=== PATIENT | male | born 1945 | race Caucasian/White ===

== ENCOUNTER 2016-07-04 12:28 | Inpatient (IN) | payer MEDICARE, MEDICAID ==
--- NOTE | 2016-07-04 13:05 | ED Physician Chart ---
Chief Complaint/HPI - Patient Information Date Seen:: 07/04/16 Time Seen:: 12:48 Chief Complaint:: ALOC History of Present Illness:: THIS IS A 70 YO MALE WHO STATES THAT SUDDENLY THIS AM HE BECAME LETHARGIC AND DEPRESSED FOR NO KNOWN REASON. HE DENIES CHEST PAIN, ABDOMIN PAIN AND HEAD PAIN. HE DESCRIBES A CLOUDY FEELING IN HIS HEAD. HE ALSO STATES THAT HE FEEL VERY WEAK. HE HAS COPD, HEART DISEASE, HYPERTENSIONS, DVT AND ATRIAL FIB. Allergies:: Allergies Allergy/AdvReac Type Severity Reaction Status Date / Time codeine Allergy Verified 07/04/16 12:53 Vitals:: Vital Signs - 8 hr 07/04/16 12:40 Temp 97.8 F HR 63 RR 16 BP 128/84 O2 Sat % 96 Historian:: Patient, Medical Records Review:: Nurse's Note Reviewed Review of Systems - Review of Systems General/Constitutional: No fever, No chills, No weight loss, Weakness, No diaphoresis, No edema, Loss of appetite Skin: No skin lesions, No rash, No bruising Head: Headache, No light-headedness Eyes: No loss of vision, No pain, No diplopia ENT: No earache, No nasal drainage, No sore throat, No tinnitus Neck: No neck pain, No swelling, No thyromegaly, No stiffness, No mass noted Cardio Vascular: No chest pain, No palpitations, No PND, No orthopnea, No edema Pulmonary: No SOB, No cough, No sputum, No wheezing GI: No nausea, No vomiting, No diarrhea, No pain, No melena, No hematochezia, No constipation, No hematemesis G/U: No dysuria, No frequency, No hematuria Musculoskeletal: No bone or joint pain, No back pain, No muscle pain Endocrine: No polyuria, No polydipsia Psychiatric: Prior psych history, Depression, No anxiety, No suicidal ideation Hematopoietic: No bruising, No lymphadenopathy Allergic/Immuno: No urticaria, No angioedema Neurological: No syncope, No focal symptoms, No weakness, No paresthesia, No headache, No seizure, No dizziness, No confusion, No vertigo Past Medical History - Past Medical History Obtainable: Yes Past Medical History: HTN, CAD, CHF, Asthma/COPD, DVT/PE Family History: None Social History: Non Smoker, No Alcohol, No Drug Use, Care Facility [facility] History - Family Member Mother History Unknown: Yes Physical Exam - Physical Examination General/Constitutional: Awake, Well-developed, well-nourished, Alert, No distress, GCS 15, Non-toxic appearing, Ambulatory Other Gen/Cons comments:: SLOW MOVING WITH SLOW ANSWERS TO QUESTIONS Head: Atraumatic Eyes: Lids, conjuctiva normal, PERRL, EOMI Skin: Nl inspection, No rash, No skin lesions, No ecchymosis, Well hydrated, No lymphadenopathy ENMT: External ears, nose nl, Nasal exam nl, Lips, teeth, gums nl Neck: Nontender, Full ROM w/o pain, No JVD, No nuchal rigidity, No bruit, No mass, No stridor Respiratory: Nl effort/Exclusion, Clear to Auscultation, No Wheeze/Rhonchi/Rales Cardio Vascular: RRR, No murmur, gallop, rubs, NL S1 S2 GI: No tenderness/rebounding/guarding, No organomegaly, No hernia, Normal BS's, Nondistended, No mass/bruits, No McBurney tenderness : No CVA tenderness Extremities: No tenderness or effusion, Full ROM, normal strength in all extremities, No edema, Normal digits & nails Neuro/Psych: Alert/oriented, DTR's symmetric, Normal sensory exam, Normal motor strength, Judgement/insight normal, Normal gait, No focal deficits Other Neuro/Psych comments:: DEPRESSED MOOD Misc: normal gait, Normal back, No paraspinal tenderness Labs/Radiology/EKG Results - Lab Results Results: Laboratory Results - last 24 hr 07/04/16 07/04/16 07/04/16 13:00 13:00 13:00 WBC 4.8 RBC 4.68 Hgb 14.8 Hct 44.0 MCV 94.0 MCH 31.7 H MCHC Differential 33.7 RDW 12.5 Plt Count 151 MPV 9.6 Neutrophils % 72.0 Lymphocytes % 16.8 L Monocytes % 8.7 Eosinophils % 1.3 Basophils % 1.2 Sodium 137 Potassium 4.0 Chloride 106 Carbon Dioxide 27.9 Anion Gap 7.1 BUN 23 Creatinine 0.9 Est GFR ( Amer) TNP Est GFR (Non-Af Amer) TNP BUN/Creatinine Ratio 25.6 Glucose 92 Calcium 9.6 Total Bilirubin 1.2 H AST 16 ALT 22 Alkaline Phosphatase 82 Troponin I Total Protein 6.6 Albumin 4.1 L Globulin 2.5 Albumin/Globulin Ratio 1.6 Triglycerides 118 Cholesterol 192 LDL Cholesterol Direct 114 HDL Cholesterol 58 Urine Source Urine Color Urine Clarity Urine pH Ur Specific [place] Urine Protein Urine Glucose (UA) Urine Ketones Urine Blood Urine Nitrate Urine Bilirubin Urine Urobilinogen Ur Leukocyte Esterase Digoxin 07/04/16 07/04/16 07/04/16 13:00 13:00 13:45 WBC RBC Hgb Hct MCV MCH MCHC Differential RDW Plt Count MPV Neutrophils % Lymphocytes % Monocytes % Eosinophils % Basophils % Sodium Potassium Chloride Carbon Dioxide Anion Gap BUN Creatinine Est GFR ( Amer) Est GFR (Non-Af Amer) BUN/Creatinine Ratio Glucose Calcium Total Bilirubin AST ALT Alkaline Phosphatase Troponin I 0.01 Total Protein Albumin Globulin Albumin/Globulin Ratio Triglycerides Cholesterol LDL Cholesterol Direct HDL Cholesterol Urine Source CLEAN C Urine Color YELLOW Urine Clarity CLEAR Urine pH 7.0 Ur Specific [place] 1.020 Urine Protein NEGATIVE Urine Glucose (UA) NEGATIVE Urine Ketones NEGATIVE Urine Blood NEGATIVE Urine Nitrate NEGATIVE Urine Bilirubin NEGATIVE Urine Urobilinogen 2.0 Ur Leukocyte Esterase NEGATIVE Digoxin 0.8 - Radiology Results Results: CARDIOMEGALY PULMONARY EDEMA - EKG Interpretations EKG Time:: 12:49 Rate & Rhythm: RATE = 59, ATRIAL FIBRILLATION [place]: RIGHT Intervals: NO PVCS, Assessment - Assessment General Assessment: A-FIB AND CONGESTIVE HEART FAILURE DEPRESSION ED Septic Shock - . Is Septic Shock (SBP<90, OR Lactate>4 mmol\L) present?: No - <6hrs of presentation: Vital Signs: Vital Signs - 8 hr 07/04/16 12:40 Temp 97.8 F HR 63 RR 16 BP 128/84 O2 Sat % 96 Reassessment (Disposition) - Diagnosis Diagnosis:: CONGESTIVE HEART FAILURE ATRIAL FIB - Patient Disposition Discharge/Transfer:: Acute Care w/in this hosp Admitting Medical Physician:: Willie Walls ED Discharge Plan - Patient Disposition Admit/Discharge/Transfer: Acute Care w/in this hosp Condition at Disposition: Stable
[2016-07-04 13:14] LABS: % BASOPHILS 1.2 % (0.0-2.0); % EOSINOPHILS 1.3 % (0.0-5.0); % LYMPHOCYTES 16.8 % (20.0-50.0); % MONOCYTES 8.7 % (2.0-10.0); HEMOGLOBIN 14.8 gm/dL (12.6-17.4); MEAN CORPUSCULAR HEMOGLOBIN 31.7 pg (27.0-31.0); MEAN CORPUSCULAR HGB CONC 33.7 pg (28.0-36.0); MEAN PLATELET VOLUME 9.6 fl; NEUTROPHILE ABSOLUTE 3.4 Th/cmm (1.8-8.0); PLATELET COUNT 151 Th/cmm (150-400); RED BLOOD COUNT 4.68 Mil/cmm (3.80-5.80); RED CELL DISTRIBUTION WIDTH 12.5 % (11.5-20.0); WHITE BLOOD COUNT 4.8 Th/cmm (4.8-10.8)
--- NOTE | 2016-07-04 13:23 | Diagnostic Imaging Report ---
Portable chest x-ray HISTORY: Shortness of breath The heart is enlarged. No focal pulmonary processes. There is suggestion of a degree of pulmonary vascular redistribution consistent with marginal cardiac decompensation. No kimberlee pulmonary edema. No other focal processes. IMPRESSION: 1. Cardiomegaly along with changes suggesting marginal congestive heart failure without kimberlee pulmonary edema.
[2016-07-04 13:24] LABS: INR 1.12 (0.5-1.4); PROTHROMBIN TIME (TEST) 11.8 SECONDS (9.5-11.5)
[2016-07-04 13:28] LABS: ALB/GLOB RATIO 1.6 (1.0-1.8); ALKALINE PHOSPHATASE 82 U/L (34-104); ANION GAP 7.1 (7.0-16.0); BILIRUBIN,TOTAL 1.2 mg/dL (0.3-1.0); BUN - UREA NITROGEN 23 mg/dL (7-25); BUN/CREATININE RATIO 25.6; CALCIUM SERUM 9.6 mg/dL (8.6-10.3); CARBON DIOXIDE 27.9 mEq/L (21.0-31.0); CHLORIDE 106 mEq/L (98-107); CREATININE - SERUM 0.9 mg/dL (0.7-1.3); GLUCOSE 92 mg/dL (70-105); SGOT 16 U/L (13-39); SGPT/ALT 22 U/L (7-52); SODIUM SERUM 137 mEq/L (136-145)
[2016-07-04 13:29] LABS: CHOLESTEROL 192 mg/dL (<200); TRIGLYCERIDES 118 mg/dL (<150)
[2016-07-04 13:57] LABS: URINE BILIRUBIN NEGATIVE (NEGATIVE); URINE BLOOD NEGATIVE (NEGATIVE); URINE COLOR YELLOW; URINE GLUCOSE (UA) NEGATIVE (NEGATIVE); URINE KETONE NEGATIVE (NEGATIVE); URINE PROTEIN NEGATIVE (NEGATIVE)
[2016-07-04 14:04] LABS: AMPHETAMINE URINE NEGATIVE (NEGATIVE); BARBITURATES URINE NEGATIVE (NEGATIVE); METHADONE URINE NEGATIVE (NEGATIVE)
--- NOTE | 2016-07-04 14:50 | Diagnostic Imaging Report ---
CT scan of the brain without intravenous contrast HISTORY: Stroke, CVA Total DLP equals 810 CTDI equals 40.0 Axial sections were obtained from the base of the skull to the vertex. There is a prominent ventricular system size along with enlargement of cerebral sulci and subarachnoid cisterns reflecting atrophy. No acute parenchymal abnormalities. No intracerebral hemorrhage. No mass effect or shift of midline structures. A subcentimeter hypodense focus is seen in the right basal ganglia region that may be associated with an old lacunar infarct. Extensive abnormal intraluminal density consistent with mucosal thickening noted throughout the maxillary sinuses. Findings consistent with inflammatory change. IMPRESSION: 1. No acute intracerebral abnormalities 2. Small focus that may be associated with an old right basal ganglia lacunar infarct 3. Cerebral atrophy 4. Extensive abnormal mucosal changes within the maxillary sinuses consistent with inflammatory change.
[2016-07-04] MEDS ORDERED: Maalox 30 mL Cup PO PRN (15:09)
[2016-07-04] MEDS ORDERED: Magnesium Hydroxide (MOM) 30 mL UDC PO PRN (15:09)
[2016-07-04] MEDS ORDERED: guaiFENesin 200 MG/10 ML UDC PO PRN (15:16)
[2016-07-04] MEDS ORDERED: Albuterol Nebulizer 2.5mg/3mL HHN ONE (15:24)
[2016-07-04] MEDS ORDERED: Ipratropium Neb 0.5 mg/2.5 mL UD HHN ONE (15:24)
--- NOTE | 2016-07-04 16:33 | Admit Criteria Form ---
Admit Criteria Forms - Admit Criteria Diagnosis: HEART FAILURE Clinical Indications for Admission to Inpatient Care (Place 'X' for any and all applicable criteria): Admission is indicated by ANY ONE of the following(1)(2)(3)(4): [ ]I. Severe electrolyte abnormalities requiring inpatient care(9) [ ]II. Hemodynamic instability [ ]III. Anasarca [ ]IV. Acute cardiac ischemia causing or associated with failure (Also use Angina or Myocardial Infarction as appropriate) [X ]V. Cardiac arrhythmias of immediate concern [ ]. Precipitating cause for acute decompensation (eg, pneumonia, pulmonary embolism) requires inpatient care [ ]VII. Pulmonary edema that is very severe (eg, mechanical ventilation needed, imminent or likely, need for 100% oxygen to keep oxygen saturation above 90%) [ ]VIII. Inpatient admission required rather than observation care (Also use Heart Failure: Observation Care as appropriate) because of ANY ONE of the following: [ ]a) Pulmonary edema that is severe or worsening as indicated by ALL of the following: [ ]i) New need for oxygen therapy to keep oxygen saturation above 90% (or increased FiO2 need from baseline) [ ]ii) Has not improved sufficiently with emergency department or observation care IV diuretics or other heart failure treatments[C] [ ]b) Cognitive impairment that is severe or persistent [ ]c) Increased creatinine (new on laboratory test) with reduction of more than 50% in estimated glomerular filtration rate from baseline. [ ]d) Acute renal insufficiency (progressively (ongoing) rising creatinine (known from past laboratory test) with reduction of more than 25% in estimated glomerular filtration rate from baseline) [ ]e) Acute peripheral ischemia (eg, pulseless, cool, mottled, or cyanotic extremity) [ ]f) Acute renal failure [ ]g) Supplemental O2 or respiratory treatment for >24 hr that are performable only in acute inpatient setting [ ]h) Pulmonary artery catheter monitoring [ ]i) Other condition, treatment or monitoring requiring inpatient admission [ ]IX. Contraindications and/or Inappropriate clinical situations for Observational Care in patients with Heart Failure, when ANY ONE of the following is required: [ ]a) Patient with High risk of cardiac embolism (e.g, patients with previous cardiac embolism, LVEF < 40%, age >75 and patients with prosthetic valve) 18 [ ]b) Patient with Moderate risk including DM patient, CAD and patient aged 65-75 [ ]c) Patient with any change in cardiac biomarker especially troponin should be managed as high risk in an inpatient setting 19 [ ]d) Physician judgement irrespective of ECG and other diagnostic findings 20 [ ]e) Patients with hyponatremia have high risk for mortality and require more extensive care and length of stay 21 [ ]f) Need for large volume diuresis 21 [ ]g) Presence of renal insufficiency or hypotension limiting speed of diuresis 21 [ ]h) Acute cardiac Ischemia in the elderly 21 [ ]i) Patients with a 30 day risk of mortality based on a multidimensional prognostic index (MPI) [J,]21 [X ]X. General contraindications and/or Inappropriate clinical situations for Observational Care in patients with Heart Failure, when ANY ONE of the following is required: [X ]a) Prediction of prolongation of LOS based on ANY ONE of the following may be considered as a contraindication for observational care 2, 3, 4, 5, 6, 7, 8 , 9, 10, 11 [X ]i) Age > 65 yrs. [ ]ii) Patient arriving by ambulance [ ]iii) Patient with high acuity [ ]iv) Patient requiring vital sign monitoring [ ]v) Patient on IV medication [ ]b) Systolic blood pressures 180mmHg 3,12 [ ]c) Patient with altered mental status including delirium and other alteration of consciousness, (3) [ ]d) Patient whose discharge disposition will be to a snf home or rehabilitation home should not be managed in Emergency Department Observation Unit. CMS rule requires 3 days hospital stay before such placement.3,13 [ ]e) Patient with failure to thrive due to broad array of etiologies 3,16,17 [ ]f) Inability to ambulate 3,14 Extended stay beyond goal length of stay may be needed for(1)(3)(21)(25): [ ]a) Cardiac ischemia, confirmed or suspected as precipitant [ ]b) Cardiogenic shock or refractory pulmonary edema [ ]c) Acute kidney injury or renal failure [ ]d) Respiratory failure (eg, need for noninvasive or invasive mechanical ventilation) (23) [ ]e) Concomitant pneumonia or significant electrolyte abnormality (eg, severe hyponatremia) [ ]f) Newly diagnosed (new onset) atrial fibrillation [ ]g) Stage IV chronic kidney disease (estimated glomerular filtration rate of less than 30 mL/min/1.73m2 (0.50 mL/sec/1.73m2), and not previously on chronic dialysis The original [facility] content created by [email or web address] has been revised. The portions of the content which have been revised are identified through the use of italic text or in bold, and [facility] has neither reviewed nor approved the modified material. All other unmodified content is copyright [email or web address]. Please see references footnoted in the original [facility] edition 2016 Admit Criteria Met?: Yes
--- NOTE | 2016-07-04 18:37 | History & Physical ---
ADMIT DATE: 07/04/2016 CHIEF COMPLAINT: Change in mental status, almost blacking out, shortness of breath. HISTORY OF PRESENT ILLNESS: This is a 70-year-old male with history of hypertension, atrial fibrillation, COPD, history of DVT on anticoagulation was admitted from inpatient psych unit secondary to not acting like his baseline. The patient is not answering questions, also complaining shortness of breath. The patient was evaluated in the ER by Dr. Cortés and admitted for further management. PAST MEDICAL HISTORY: As mentioned in history of present illness. PAST SURGICAL HISTORY: Status post heart procedure in the past. ALLERGIES: CODEINE. MEDICATIONS: Ativan, Tylenol, aspirin, Coreg, digoxin, Lexapro, milk of magnesia, Xarelto. FAMILY HISTORY: Noncontributory. SOCIAL HISTORY: The patient was smoker, quit 4 years ago, quit drinking 3 years ago. 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 He is single with no children. REVIEW OF SYSTEMS: GENERAL: Complains of not feeling well ____. HEENT: No blurred vision. NECK: No neck pain. LUNGS: The patient with COPD. Denies asthma. HEART: The patient with hypertension and atrial fibrillation and ____. ABDOMEN: No nausea, vomiting or pain. GENITOURINARY: The patient denies increased hematuria or dysuria. NEUROLOGIC: The patient is not acting per his baseline. PHYSICAL EXAMINATION: VITAL SIGNS: Blood pressure 137/82, respirations 16, pulse 63, temperature 97. NEUROLOGIC: Elderly male, obese. NECK: Supple. No mass. LUNGS: Equal breath sounds. HEART: Regular rate and rhythm without appreciable murmur. ABDOMEN: Soft, nontender, globular. Positive bowel sounds. EXTREMITIES: Positive excoriation. Positive 1+ edema, ____ changes. NEUROLOGIC: Limited, moving all 4 extremities. LABORATORY DATA: WBC 4.8, hemoglobin 14 and platelets is 151. INR 1.1. Sodium 137, potassium 4.0, BUN 22, creatinine ____, total bilirubin 1.2. Albumin ____. UA negative. ASSESSMENT: Altered level of consciousness, near syncope, congestive heart failure exacerbation, cerebrovascular accident on head CT, hypertension, atrial fibrillation, chronic obstructive pulmonary disease, history of deep vein thrombosis, osteoarthritis, obesity, bilateral lower extremity venostasis. PLAN: We will continue the patient on ____ treatment. Blood cultures had been sent. Continue on anticoagulation. We will perform 2D echo and ____ Psychiatry as well. We are planning ____ ultrasound as well. We will continue to monitor the patient closely. JOB# [id number]
[2016-07-04] MEDS ORDERED: Ipratropium Neb 0.5 mg/2.5 mL UD HHN SCH (19:00)
[2016-07-04] MEDS ORDERED: Albuterol Nebulizer 2.5mg/3mL HHN SCH (19:00)
[2016-07-04] MEDS ORDERED: DOXEPIN HCL 10 MG PO SCH (21:00)
--- NOTE | 2016-07-05 07:42 | Consultation ---
DATE OF CONSULTATION: 07/04/[address] Walls. HISTORY OF PRESENT ILLNESS: This is a 70-year-old male patient who was brought to the hospital due to not responding to the questions, altered level, and depression. PAST MEDICAL HISTORY: Hypertension, atrial fibrillation, COPD, and DVT. FAMILY HISTORY: Unremarkable. SOCIAL HISTORY: No history of smoking or alcohol abuse. ALLERGIES: No known allergies. PHYSICAL EXAMINATION: VITAL SIGNS: Blood pressure 130/80, pulse 70, and respirations 20. HEAD: Normocephalic. No lumps or bumps. EYES: Pupils are equal and reactive to light. Fundi show AV nicking, sclerae white, and conjunctivae pink. NECK: Carotid 2+. Normal upstroke. JVD 10 cm above the sternal angle. Thyroid not palpable. Lymph nodes not palpable. CHEST: Shows increased AP diameter. No kyphosis or scoliosis. LUNGS: Bilateral bronchovesicular breath sounds. Occasional wheeze. No rales. HEART: PMI at sixth intercostal space with lateral to midclavicular line. S1, S2. No S3, S4. Systolic murmur, grade 2/6, lower left sternal border without radiation. ABDOMEN: Soft. Liver and spleen not palpable. No organomegaly. Bowel sounds are active. NEUROLOGIC: Unremarkable. EXTREMITIES: The patient has ____ pulses. 1+ pedal edema. CLINICAL IMPRESSION: 1. Near syncope. 2. Congestive heart failure. 3. Cerebrovascular accident with late effect. 4. Hypertension. 5. Atrial fibrillation. 6. Chronic obstructive pulmonary disease. 7. Deep vein thrombosis with pulmonary emboli. 8. Bilateral lower extremities venous stasis. 9. Osteoarthritis. 10. Obesity. PLAN: We will get echocardiogram. The patient has psych eval and echocardiogram. JOB# [id number]
[2016-07-05] MEDS ORDERED: Escitalopram Oxalate 5 mg Tab PO SCH (09:00)
[2016-07-05] MEDS ORDERED: Potassium Chloride 10 mEq ER Tab PO SCH (09:00)
[2016-07-05] MEDS ORDERED: Pneumococcal Vaccine 0.5 mL Vial IM ONE (12:00)
--- NOTE | 2016-07-05 23:09 | Discharge Summary ---
DATE OF DISCHARGE: 07/04/2016 CHIEF COMPLAINT: The patient left AMA; ALOC, about the baseline; CHF exacerbation, CVA, hypertension, atrial fibrillation, COPD, history of DVT, osteoarthritis, venostasis changes in bilateral lower extremity. HISTORY: This is a 70-year-old male with multiple medical problems who was admitted from inpatient psych secondary to shortness of breath. The patient was evaluated in the ER and then admitted. HOSPITAL COURSE: The patient ____ felt better and wanted to go home. The patient was not on hold and left against medical advice. CONDITION ON DISCHARGE: The patient left AMA. DISCHARGE INSTRUCTIONS: The patient left AMA. JOB# [id number]
== END 2016-07-04 19:55 | disposition left against medical advice (07) | DRG 308 ==
LOC: ER 12:28 → TELE 13:55
PROVIDERS: ADMIT Internal Medicine; ATTEND Internal Medicine
DX: I48.91 Unspecified atrial fibrillation (principal); I50.23 Acute on chronic systolic (congestive) heart failure; J44.9 Chronic obstructive pulmonary disease, unspecified; I69.30 Unspecified sequelae of cerebral infarction; I11.0 Hypertensive heart disease with heart failure; F32.9 Major depressive disorder, single episode, unspecified; I25.10 Atherosclerotic heart disease of native coronary artery without angina pectoris; R55 Syncope and collapse; E66.9 Obesity, unspecified; M19.90 Unspecified osteoarthritis, unspecified site; I87.8 Other specified disorders of veins; Z68.38 Body mass index [BMI] 38.0-38.9, adult; Z86.718 Personal history of other venous thrombosis and embolism; Z79.01 Long term (current) use of anticoagulants; Z88.5 Allergy status to narcotic agent
CPT/HCPCS: 36415-UA; 70450-TC; 71010-TC; 80053-TC; 80061-TC; 80162-TC; 80307; 81003-TC; 83880-TC; 84443-TC; 84484-TC; 85025-TC; 85610-TC; 85730-TC; 86592-TC; 90779; 93005; 94640; 94760; J1940; J7613; Z7610